=== PATIENT | male | born 1990 | race African-American/Black ===

== ENCOUNTER 2021-01-21 16:11 | Emergency (ER) | payer OTHER ==
[~2021-01-21] VITALS: Ht 182.9 cm; Wt 62.7 kg
[2021-01-21 16:25] VITALS: BP 122/85
[2021-01-21] MEDS ORDERED: FLUT1DIS20 INH (16:38)
[2021-01-21] MEDS ORDERED: ALBU8HFA PO (16:38)
--- NOTE | 2021-01-21 16:47 | NUR ---
pt seen by provider before nurse could assess
== END 2021-01-21 16:49 | disposition home or self-care (01) ==
LOC: ER 16:12
DX: R06.02 Shortness of breath (principal); J45.909 Unspecified asthma, uncomplicated; Z76.0 Encounter for issue of repeat prescription; Z79.899 Other long term (current) drug therapy
CPT/HCPCS: 99281